=== PATIENT | male | born 1965 | race Caucasian/White ===

== ENCOUNTER 2022-01-08 14:03 | Emergency (ER) | payer OTHER ==
[~2022-01-08] VITALS: Ht 177.8 cm; Wt 81.6 kg
[2022-01-08 14:19] VITALS: BP 121/77
[2022-01-08 14:28] LABS: BASOPHILS % (AUTO) 2.3 % (0.0-5.0); EOSINOPHILS % (AUTO) 4.2 % (0.0-8.0); HEMATOCRIT 41.5 % (42-54); LYMPHOCYTES % (AUTO) 41.7 % (21.0-51.0); MEAN CORPUSCULAR HEMOGLOBIN 34.5 pg (27.0-33.0); MEAN CORPUSCULAR HGB CONC 34.2 g/dL (32.0-36.0); MONOCYTES % (AUTO) 17.2 % (3.0-13.0); NEUTROPHILS % (AUTO) 34.3 % (40.0-77.0); PLATELET COUNT (AUTO) 111 K/uL (130-400); RED BLOOD CELL COUNT(AUTO) 4.11 MIL/uL (4.50-6.20); RED CELL DISTRIBUTION WIDTH 13.7 % (11.0-15.5); WHITE BLOOD COUNT (AUTO) 3.6 K/uL (4.8-10.8)
[2022-01-08] MEDS ORDERED: IPRATROPIUM/ALBUTEROL SULFATE 3 ML SOLUTION IH ONE (14:30)
[2022-01-08 14:40] LABS: CREATININE 0.9 mg/dL (0.5-1.5); POTASSIUM 3.5 mmol/L (3.5-5.1)
[2022-01-08 14:50] LABS: ALBUMIN 2.6 g/dL (3.5-5.0); BILIRUBIN,TOTAL 0.6 mg/dL (0.2-1.0); TOTAL PROTEIN, SERUM 7.5 g/dL (6.0-8.3)
== END 2022-01-08 15:09 | disposition left against medical advice (07) ==
LOC: EDH 14:03
DX: R07.89 Other chest pain (principal); J44.9 Chronic obstructive pulmonary disease, unspecified; I10 Essential (primary) hypertension; F17.210 Nicotine dependence, cigarettes, uncomplicated; Z88.0 Allergy status to penicillin
CPT/HCPCS: 36415; 71045; 80053; 84484; 85025; 93005

== ENCOUNTER 2023-05-04 20:07 | Emergency (ER) | payer OTHER ==
[~2023-05-04] VITALS: Ht 177.8 cm; Wt 78.0 kg
[~2023-05-04 20:07] MED LIST: IBUP-2070 PO
[2023-05-04 20:40] LABS: BASOPHILS % (AUTO) 0.6 % (0.0-5.0); EOSINOPHILS % (AUTO) 1.1 % (0.0-8.0); LYMPHOCYTES % (AUTO) 19.3 % (21.0-51.0); MEAN CORPUSCULAR HGB CONC 33.8 g/dL (32.0-36.0); MEAN CORPUSCULAR VOLUME 100.6 fL (79-99); MONOCYTES % (AUTO) 8.5 % (3.0-13.0); NEUTROPHILS % (AUTO) 69.9 % (40.0-77.0); PLATELET COUNT (AUTO) 170 K/uL (130-400); RED BLOOD CELL COUNT(AUTO) 3.38 MIL/uL (4.50-6.20); RED CELL DISTRIBUTION WIDTH 16.5 % (11.0-15.5); WHITE BLOOD COUNT (AUTO) 9.5 K/uL (4.8-10.8)
[2023-05-04 21:00] LABS: ALBUMIN 2.4 g/dL (3.5-5.0); CREATININE 1.1 mg/dL (0.5-1.5); POTASSIUM 3.8 mmol/L (3.5-5.1); TOTAL PROTEIN, SERUM 7.9 g/dL (6.0-8.3)
[2023-05-04] MEDS ORDERED: 0.9%NACL 1000ML 1,000 ML IV SCH (21:00)
[2023-05-04] MEDS ORDERED: MORPHINE 2 MG SYG IVP SCH (21:00)
[2023-05-04] MEDS ORDERED: IPRATROPIUM/ALBUTEROL SULFATE 3 ML SOLUTION IH ONE (21:00)
[2023-05-04 21:14] VITALS: PULSE 101; RESP 19
[2023-05-04 21:15] LABS: B-TYPE NATRIURETIC PEPTIDE 107 pg/mL (0-100)
[2023-05-04 21:17] LABS: ABG BASE EXCESS -3.7 mmol/L (-2.0-3.0); ABG HCO3 18.7 mmol/L (21.0-28.0); ABG OXYGEN SATURATION 92.2 % (95.0-99.0); ABG PCO2 26 mmHg (35-48)
[2023-05-04 21:31] LABS: SALICYLATE 4.8 mg/dL (2.8-20.0)
[2023-05-04 21:34] LABS: ACETAMINOPHEN < 1 mcg/mL (10-29)
[2023-05-04 22:53] VITALS: BP 145/78; PULSE 98; RESP 24; O2SAT 98
[2023-05-05] MEDS ORDERED: IOHEXOL-350 75 ML VIAL IV ONE (00:02)
[2023-05-05] MEDS ORDERED: ALBU90AE2 IH (00:50)
[2023-05-05] MEDS ORDERED: GABA300C PO (00:50)
== END 2023-05-05 01:10 | disposition home or self-care (01) ==
LOC: EDH 20:07
DX: J44.1 Chronic obstructive pulmonary disease with (acute) exacerbation (principal); G62.9 Polyneuropathy, unspecified; F10.129 Alcohol abuse with intoxication, unspecified; I10 Essential (primary) hypertension; F20.9 Schizophrenia, unspecified; Z88.0 Allergy status to penicillin
CPT/HCPCS: 99285; 93970; 96374; 71270; 96361; 71045; 82947; 82550 ×2; 83874; 84484 ×2; 80053; 82803; 85025; 83605; 36415; 93005 ×2; 94640; 82435; 84132; 84295; 85018; 83880 ×2; G0481; J2270; J7030; Q9967

== ENCOUNTER 2023-05-14 18:32 | Inpatient (IN) | payer OTHER ==
[~2023-05-14] VITALS: Ht 177.8 cm; Wt 69.0 kg
[~2023-05-14 18:32] MED LIST changes: +ALBU90AE2 IH; +GABA300C PO
[2023-05-14] MEDS ORDERED: TETANUS/DIPHTHERIA TOXOID [ADULT] 0.5 ML VIAL IM ONE (19:00)
[2023-05-14] MEDS ORDERED: ACETAMINOPHEN 500 MG TABLET PO ONE (19:00)
[2023-05-14] MEDS ORDERED: KETOROLAC 15MG/ML VIAL (15MG/ML) IV ONE (19:30)
[2023-05-14] MEDS ORDERED: SULF1TAB42 PO (19:44)
[2023-05-14] MEDS ORDERED: CLIN-141 PO (19:44)
[2023-05-14] MEDS ORDERED: CEFTRIAXONE 2GM VIAL IVPB ONE (21:30)
[2023-05-14 21:51] LABS: BASOPHILS % (AUTO) 1.8 % (0.0-5.0); EOSINOPHILS # (AUTO) 0.14 K/uL (0.00-0.70); EOSINOPHILS % (AUTO) 2.5 % (0.0-8.0); HEMATOCRIT 34.4 % (42-54); IMMATURE GRANULOCYTE ABSOLUTE 0.05 K/uL (0-1); LYMPHOCYTES # (AUTO) 1.9 K/uL (1.0-4.8); MEAN CORPUSCULAR HEMOGLOBIN 34.5 pg (27.0-33.0); MEAN CORPUSCULAR HGB CONC 33.7 g/dL (32.0-36.0); MEAN CORPUSCULAR VOLUME 102.4 fL (79-99); MONOCYTES # (AUTO) 0.6 K/uL (0.1-1.0); MONOCYTES % (AUTO) 10.9 % (3.0-13.0); NEUTROPHILS # (AUTO) 2.9 K/uL (1.8-7.7); NEUTROPHILS % (AUTO) 49.9 % (40.0-77.0); PLATELET COUNT (AUTO) 190 K/uL (130-400); RED BLOOD CELL COUNT(AUTO) 3.36 MIL/uL (4.50-6.20); RED CELL DISTRIBUTION WIDTH 16.7 % (11.0-15.5); WHITE BLOOD COUNT (AUTO) 5.7 K/uL (4.8-10.8)
[2023-05-14] MEDS ORDERED: ACETAMINOPHEN 325 MG TAB PO PRN (22:00)
[2023-05-14] MEDS ORDERED: ONDANSETRON 4MG INJ IV PRN (22:00)
[2023-05-14 22:02] LABS: POTASSIUM 4.1 mmol/L (3.5-5.1)
[2023-05-14 22:04] LABS: INR 0.98 (0.85-1.15); PROTHROMBIN TIME 11.4 SEC (9.6-11.6)
[2023-05-14 22:05] LABS: PARTIAL THROMBOPLASTIN TIME 27.6 SEC (26.3-35.5)
[2023-05-14 22:12] LABS: ALBUMIN 2.3 g/dL (3.5-5.0); BILIRUBIN,TOTAL 0.3 mg/dL (0.2-1.0); TOTAL PROTEIN, SERUM 7.9 g/dL (6.0-8.3)
[2023-05-14] MEDS: LACTATED RINGERS 1000ML 1,000 ML IV SCH (22:19)
[2023-05-15] VITALS (29 sets, daily range): BP systolic 113–163; BP diastolic 72–102; PULSE 59–89; RESP 15–20; O2SAT 95–97
[2023-05-15] MEDS: KETOROLAC 15MG/ML VIAL (15MG/ML) IV PRN ×4 (01:08→22:05)
[2023-05-15] MEDS: CHLORDIAZEPOXIDE HCL 25 MG CAP PO PRN (01:57)
[2023-05-15] MEDS ORDERED: THIAMINE HCL 100 MG, FOLIC ACID 1 MG, M.V.I. IV [ADULT] 10 ML in 0.9%NACL 1000ML 1,000 ML IV SCH (02:00)
[2023-05-15] MEDS ORDERED: LORAZEPAM 2 MG/ML 1 ML VIAL IVP PRN ×2 (02:00)
[2023-05-15] MEDS ORDERED: PHARMACY COMMUNICATION MISC PRN (02:00)
[2023-05-15] MEDS ORDERED: CHLORDIAZEPOXIDE HCL 25 MG CAP PO PRN (02:00)
[2023-05-15 05:45] LABS: HEMATOCRIT 30.6 % (42-54); MEAN CORPUSCULAR HEMOGLOBIN 34.3 pg (27.0-33.0); MEAN CORPUSCULAR HGB CONC 33.7 g/dL (32.0-36.0); RED CELL DISTRIBUTION WIDTH 16.8 % (11.0-15.5); WHITE BLOOD COUNT (AUTO) 5.3 K/uL (4.8-10.8)
[2023-05-15 05:58] LABS: ALBUMIN 1.8 g/dL (3.5-5.0); BILIRUBIN,TOTAL 0.3 mg/dL (0.2-1.0); CREATININE 0.9 mg/dL (0.5-1.5); TOTAL PROTEIN, SERUM 6.6 g/dL (6.0-8.3)
[2023-05-15 06:05] LABS: PROTHROMBIN TIME 11.6 SEC (9.6-11.6)
[2023-05-15 06:06] LABS: PARTIAL THROMBOPLASTIN TIME 28.8 SEC (26.3-35.5)
[2023-05-15] MEDS: THIAMINE HCL 100 MG, FOLIC ACID 1 MG, M.V.I. IV [ADULT] 10 ML in 0.9%NACL 1000ML 1,000 ML IV SCH (09:00)
[2023-05-15] MEDS: GABAPENTIN 300 MG CAPSULE PO SCH ×3 (09:00→21:22)
[2023-05-15] MEDS: FAMOTIDINE 20MG TAB PO SCH ×2 (09:00→21:22)
[2023-05-15 10:24] LABS: CRP QUANTITATIVE 3.8 mg/L (0.00-9.0)
[2023-05-15] MEDS ORDERED: CEFAZOLIN SODIUM 2 GM VIAL ONE (10:24)
[2023-05-15] MEDS ORDERED: LIDOCAINE PF 100MG/5ML (2%) SYRINGE 5ML ONE (10:27)
[2023-05-15] MEDS ORDERED: MIDAZOLAM HCL 1 MG/ML 2ML VIAL ONE (10:28)
[2023-05-15] MEDS ORDERED: PROPOFOL 10 MG/ML 20ML VIAL IV ONE (10:28)
[2023-05-15] MEDS ORDERED: ROCURONIUM 10MG/1ML SYR 10 MG/ML ML ONE (10:28)
[2023-05-15] MEDS ORDERED: FENTANYL CITRATE PF 50 MCG/1 ML 2ML VIAL ONE (10:28)
[2023-05-15] MEDS ORDERED: CEFAZOLIN SODIUM 2 GM VIAL IVPB ONE (10:40)
[2023-05-15] MEDS ORDERED: DEXAMETHASONE SOD PHOSPHATE 4 MG/ML 1ML VIAL ONE (10:51)
[2023-05-15] MEDS ORDERED: KETOROLAC 30MG VIAL (30MG/ML) ONE (10:51)
[2023-05-15] MEDS ORDERED: ONDANSETRON 4MG INJ ONE (10:51)
[2023-05-15] MEDS ORDERED: SUGAMMADEX SODIUM 200 MG/2 ML VIAL IV ONE (11:11)
[2023-05-15] MEDS: LACTATED RINGERS 1000ML 1,000 ML IV SCH ×2 (11:20→23:41)
[2023-05-15] MEDS ORDERED: MEPERIDINE-PF 25 MG/ML SYG ONE ×2 (11:24→11:39)
[2023-05-15] MEDS ORDERED: TETANUS IMMUNE GLOBULIN 250 UNIT SYRINGE IM SCH ×2 (12:00→16:00)
[2023-05-15] MEDS: AMP/SULBAC 3GM+NS 100ML IV SCH ×2 (13:00→18:35)
[2023-05-15] MEDS ORDERED: DIPHTHERIA TOXOID IM ONE (13:30)
[2023-05-15] MEDS ORDERED: [UNRECOGNIZED DRUG - OTHER] IM ONE (13:30)
[2023-05-15] MEDS: ACETAMINOPHEN 325 MG TAB PO PRN (21:22)
[2023-05-15] MEDS ORDERED: CEFTRIAXONE 2GM VIAL IVPB SCH (22:00)
[2023-05-16] VITALS (7 sets, daily range): BP systolic 116–154; BP diastolic 77–100; PULSE 67–79; RESP 19–20; O2SAT 97
[2023-05-16] MEDS: AMP/SULBAC 3GM+NS 100ML IV SCH ×4 (00:49→18:24)
[2023-05-16] MEDS: KETOROLAC 15MG/ML VIAL (15MG/ML) IV PRN (04:12)
[2023-05-16 04:51] LABS: BASOPHILS # (AUTO) 0.03 K/uL (0.00-0.20); BASOPHILS % (AUTO) 0.4 % (0.0-5.0); HEMATOCRIT 29.7 % (42-54); IMMATURE GRANULOCYTE ABSOLUTE 0.04 K/uL (0-1); LYMPHOCYTES # (AUTO) 1.2 K/uL (1.0-4.8); LYMPHOCYTES % (AUTO) 17.3 % (21.0-51.0); MEAN CORPUSCULAR HEMOGLOBIN 34.3 pg (27.0-33.0); MEAN CORPUSCULAR VOLUME 103.8 fL (79-99); MONOCYTES # (AUTO) 0.8 K/uL (0.1-1.0); MONOCYTES % (AUTO) 11.3 % (3.0-13.0); NEUTROPHILS # (AUTO) 4.9 K/uL (1.8-7.7); NEUTROPHILS % (AUTO) 70.4 % (40.0-77.0); PLATELET COUNT (AUTO) 137 K/uL (130-400); RED BLOOD CELL COUNT(AUTO) 2.86 MIL/uL (4.50-6.20); RED CELL DISTRIBUTION WIDTH 16.2 % (11.0-15.5)
[2023-05-16 05:15] LABS: ALBUMIN 1.7 g/dL (3.5-5.0); BILIRUBIN,TOTAL 0.4 mg/dL (0.2-1.0); CREATININE 0.9 mg/dL (0.5-1.5); POTASSIUM 4.5 mmol/L (3.5-5.1); TOTAL PROTEIN, SERUM 6.2 g/dL (6.0-8.3)
[2023-05-16] MEDS: ACETAMINOPHEN 325 MG TAB PO PRN ×2 (05:54→20:56)
[2023-05-16] MEDS: LACTATED RINGERS 1000ML 1,000 ML IV SCH ×2 (06:48→11:53)
[2023-05-16] MEDS: FAMOTIDINE 20MG TAB PO SCH ×2 (08:46→20:56)
[2023-05-16] MEDS: GABAPENTIN 300 MG CAPSULE PO SCH ×3 (08:46→20:52)
[2023-05-16] MEDS: CHLORDIAZEPOXIDE HCL 25 MG CAP PO PRN ×2 (08:46→18:26)
[2023-05-16] MEDS: THIAMINE HCL 100 MG, FOLIC ACID 1 MG, M.V.I. IV [ADULT] 10 ML in 0.9%NACL 1000ML 1,000 ML IV SCH (08:59)
[2023-05-16] MEDS ORDERED: MORPHINE 2 MG SYG IVP PRN (12:00)
[2023-05-16] MEDS ORDERED: COMPOUND IV REFRIGERATED 1 EACH IVSOLN MISC PRN (12:00)
[2023-05-17 07:50] VITALS: O2SAT 94
[2023-05-17 08:00] VITALS: BP 149/76; PULSE 77; RESP 18
== END 2023-05-17 10:24 | disposition left against medical advice (07) | DRG 514 ==
LOC: EDH 18:32 → EDHIP 18:33 → 3DH 05-15 00:23
PROVIDERS: ADMIT Hospitalist; ATTEND Hospitalist
PROC: 0JBK0ZZ Excision of Left Hand Subcutaneous Tissue and Fascia, Open Approach (ICD-10-PCS; principal; 2023-05-15 10:33)
DX: S62.331B Displaced fracture of neck of second metacarpal bone, left hand, initial encounter for open fracture (principal); F20.9 Schizophrenia, unspecified; J44.9 Chronic obstructive pulmonary disease, unspecified; I10 Essential (primary) hypertension; F17.200 Nicotine dependence, unspecified, uncomplicated; F10.10 Alcohol abuse, uncomplicated; D64.9 Anemia, unspecified; Y90.7 Blood alcohol level of 200-239 mg/100 ml; Z53.29 Procedure and treatment not carried out because of patient's decision for other reasons; W54.0XXA Bitten by dog, initial encounter; Z88.0 Allergy status to penicillin; Y93.89 Activity, other specified; Y92.89 Other specified places as the place of occurrence of the external cause; Y99.8 Other external cause status; Z59.00 Homelessness unspecified; Z82.49 Family history of ischemic heart disease and other diseases of the circulatory system
CPT/HCPCS: 36415; 73130; 80053; 82948; 83615; 84145; 85025; 85027; 85610; 85651; 85730; 86140; 90714; G0378; J0295; J0696; J1100; J1670; J1885; J2001; J2175; J2250; J2270; J2405; J2704; J3010; J3411; J3490; J7030; A4600; J0690

== ENCOUNTER 2023-05-20 08:19 | Emergency (ER) | payer OTHER ==
[~2023-05-20] VITALS: Ht 177.8 cm; Wt 78.0 kg
[~2023-05-20 08:19] MED LIST changes: -ALBU90AE2 IH; -IBUP-2070 PO
[2023-05-20] MEDS ORDERED: DOXYCYCLINE HYCLATE 100 MG TABLET PO SCH (10:00)
[2023-05-20] MEDS ORDERED: METRONIDAZOLE 500 MG TABLET PO SCH (10:00)
[2023-05-20] MEDS ORDERED: IBUPROFEN 600 MG TABLET PO ONE (10:00)
[2023-05-20] MEDS ORDERED: DOXY-469 PO (10:55)
[2023-05-20] MEDS ORDERED: IBUP-2070 PO (10:55)
[2023-05-20] MEDS ORDERED: METR-172 PO (10:55)
[2023-05-20 11:13] VITALS: BP 132/78; PULSE 78; RESP 18; O2SAT 98
== END 2023-05-20 11:14 | disposition home or self-care (01) ==
LOC: EDH 08:19
DX: S62.92XB Unspecified fracture of left hand, initial encounter for open fracture (principal); I10 Essential (primary) hypertension; F17.200 Nicotine dependence, unspecified, uncomplicated; F20.9 Schizophrenia, unspecified; J44.9 Chronic obstructive pulmonary disease, unspecified; Z59.00 Homelessness unspecified; Z79.899 Other long term (current) drug therapy; Z88.0 Allergy status to penicillin; Z98.890 Other specified postprocedural states; X58.XXXA Exposure to other specified factors, initial encounter; Y93.89 Activity, other specified; Y92.89 Other specified places as the place of occurrence of the external cause; Y99.8 Other external cause status